=== PATIENT | female | born 1990 | race Caucasian/White ===

== ENCOUNTER 2018-12-12 21:46 | Emergency (ER) | payer OTHER ==
[~2018-12-12] VITALS: Ht 157.5 cm; Wt 46.7 kg
[2018-12-12 22:13] VITALS: BP 127/76
[2018-12-12] MEDS ORDERED: IBUPROFEN 600 MG TABLET PO ONE (22:42)
[2018-12-12] MEDS: IBUPROFEN 600 MG TABLET PO ONE (22:45)
== END 2018-12-12 22:56 | disposition home or self-care (01) ==
LOC: ER 21:47
DX: R51 Headache (principal); J32.9 Chronic sinusitis, unspecified
CPT/HCPCS: 99282; A4606

== ENCOUNTER 2019-03-16 21:31 | Emergency (ER) | payer OTHER ==
[~2019-03-16] VITALS: Ht 157.5 cm; Wt 47.2 kg
[2019-03-16 21:45] VITALS: BP 119/86
--- NOTE | 2019-03-16 21:45 | NUR ---
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 +NAUSEA, +VOMITTING, +DIZZINESS TOOK 600MG IBUPROFEN X2HR STAFF MIDWIFE/APPRENTICESHIP DIRECTOR, PT IS AAOX4, NOT IN RESPIRATORY DISTRESS, V/S STABLE, KEPT RESTED AND COMFORTABLE, WILL CONTINUE TO MONITOR.
--- NOTE | 2019-03-16 22:40 | NUR ---
URINE SPECIMEN COLLECTED AND SENT TO LAB.
--- NOTE | 2019-03-16 22:45 | NUR ---
SEEN AND EXAMINED BY RODGER MEADOWS
[2019-03-16 22:54] LABS: APPEARANCE,URINE Cloudy (CLEAR); BILIRUBIN,URINE Negative (NEGATIVE); BLOOD, URINE Negative Ery/uL (NEGATIVE); COLOR,URINE Yellow (YELLOW); KETONES,URINE 15 (NEGATIVE); LEUKOCYTE ESTERASE ,URINE Negative (NEGATIVE); NITRITE, URINE Negative (NEGATIVE); PH,URINE 8.5 (5.0-8.0); PROTEIN,URINE Negative (NEGATIVE); UGLUCOSE Negative (NEGATIVE); UROBILINOGEN,URINE 0.2 EU/dL (0.2)
[2019-03-16] MEDS ORDERED: ACETAMINOPHEN ES 500 MG TABLET ONE (23:18)
--- NOTE | 2019-03-16 23:22 | NUR ---
Patient discharged to home in stable condition. Written and verbal after care instructions given. Patient verbalizes understanding of instruction.
[2019-03-16] MEDS ORDERED: ACETAMINOPHEN ES 500 MG TABLET PO ONE (23:30)
[2019-03-17 00:51] LABS: BACTERIA,URINE Few /HPF (None Seen); RBC,URINE 0-2 /HPF (0-2); SQUAMOUS EPITHELIAL CELL,UR Few /HPF (None Seen); WBC,URINE 0-2 /HPF (0-3)
[2019-03-17 00:52] LABS: URINE AMORPHOUS PHOSPHATES Moderate /HPF (None Seen)
== END 2019-03-16 23:24 | disposition home or self-care (01) ==
LOC: ER 21:32
DX: G44.209 Tension-type headache, unspecified, not intractable (principal); K08.89 Other specified disorders of teeth and supporting structures
CPT/HCPCS: 81000-TC; 84703-TC

== ENCOUNTER 2019-12-22 19:59 | Emergency (ER) | payer OTHER ==
[~2019-12-22] VITALS: Ht 160 cm; Wt 50.8 kg
[2019-12-22 21:14] VITALS: BP 118/67
== END 2019-12-22 21:14 | disposition home or self-care (01) ==
LOC: ER 20:01
DX: H10.89 Other conjunctivitis (principal); J06.9 Acute upper respiratory infection, unspecified

== ENCOUNTER 2021-08-28 16:04 | Emergency (ER) | payer OTHER ==
[~2021-08-28] VITALS: Ht 160 cm; Wt 48.1 kg
--- NOTE | 2021-08-28 16:14 | NUR ---
TO ER BED 11, C/O PALPITATIONS, LEFT ARM TINGLING, HEAVY CHEST [id number], AAOX3, BREATHING EVEN AND NON LABORED, CONNECTED TO MONITOR
--- NOTE | 2021-08-28 16:45 | NUR ---
SALINE LOCK ESTABLISHED BLOOD DRAWN AND PICKED UP BY LAB
[2021-08-28 17:04] LABS: BASOPHILS # (AUTO) 0.1 K/uL (0.0-0.2); BASOPHILS % (AUTO) 0.8 % (0.0-2.0); EOSINOPHILS % (AUTO) 0.4 % (0.0-6.0); HEMATOCRIT 40 % (33-45); HEMOGLOBIN 13.4 g/dL (11.5-14.8); LYMPHOCYTES # (AUTO) 2.2 K/uL (0.8-4.8); LYMPHOCYTES % (AUTO) 25.7 % (20.0-44.0); MEAN CORPUSCULAR HGB CONC 34 g/dl (31.0-36.0); MEAN CORPUSCULAR VOLUME 82 fL (82-100); MONOCYTES # (AUTO) 0.6 K/uL (0.1-1.30); MONOCYTES % (AUTO) 6.8 % (2.0-12.0); NEUTROPHILS # (AUTO) 5.6 K/uL (1.8-8.9); NEUTROPHILS % (AUTO) 66.3 % (43.0-81.0); PLATELET COUNT (AUTO) 288 K/uL (150-450); RED BLOOD CELL COUNT(AUTO) 4.81 MIL/uL (4.0-5.2); WHITE BLOOD COUNT (AUTO) 8.4 K/uL (4.3-11.0)
[2021-08-28 17:10] LABS: CALCIUM, SERUM 8.5 mg/dL (8.5-10.1); CARBON DIOXIDE 27 mmol/L (21-32); CHLORIDE 105 mmol/L (98-107); CREATININE 0.7 mg/dL (0.6-1.3); GLUCOSE 95 mg/dL (74-106); POTASSIUM 3.7 mmol/L (3.5-5.1); SODIUM SERUM 141 mmol/L (136-145); UREA NITROGEN, BLOOD 10 mg/dL (7-18)
[2021-08-28] MEDS ORDERED: LORAZEPAM 0.5 MG TABLET ONE (17:27)
[2021-08-28] MEDS: LORAZEPAM 1 MG TABLET PO ONE (17:29)
[2021-08-28 18:50] VITALS: BP 105/71
== END 2021-08-28 18:50 | disposition home or self-care (01) ==
LOC: ER 16:07
DX: F41.9 Anxiety disorder, unspecified (principal); R07.89 Other chest pain; R00.2 Palpitations
CPT/HCPCS: 36415; 71045-TC; 80048-TC; 84484-TC; 85025-TC